=== PATIENT | female | born 1945 | race Caucasian/White ===

== ENCOUNTER 2018-04-08 01:45 | Outpatient (CLI) | payer MEDICARE, SELFPAY ==
[2018-04-08 11:24] LABS: BUN 8 mg/dL (7-18); CREATININE 0.65 mg/dL (0.55-1.02); Calcium 9.2 mg/dL (8.5-10.1); Chloride 99 mmol/L (98-107); Cholesterol 237 mg/dL (50-200); Glucose 110 mg/dL (70-100); HDL Cholesterol 148 mg/dL (40-60); LDL CHOLESTEROL 69 mg/dL (<100); Potassium 4.3 mmol/L (3.5-5.1); Sodium 136 mmol/L (136-145); Triglyceride 31 mg/dL (30-150)
== END 2018-04-08 02:05 ==
PROVIDERS: PCP Nurse Practitioner Family; Visit Provider Nurse Practitioner Family
DX: I10 Essential (primary) hypertension (principal); E78.5 Hyperlipidemia, unspecified
CPT/HCPCS: 36415; 80048; 80061; 83721

== ENCOUNTER 2019-01-11 01:44 | Outpatient (CLI) | payer MEDICARE, SELFPAY ==
[2019-01-11 12:35] LABS: Abs Immature Grans 0.01 k/cumm (0.0-0.09); Absolute Basophil Count 0.06 k/cumm (0.0-0.2); Absolute Eosinophil Count 0.09 k/cumm (0.0-0.7); Absolute Lymphocyte Count 2.01 k/cumm (1.2-3.4); Absolute Monocyte Count 0.83 k/cumm (0.11-0.7); Absolute Neutrophil Count 4.15 k/cumm (1.2-6.7); Basophils % 0.8; Eosinophils % 1.3; HCT 39.2 % (36.0-46.0); HGB 13.8 g/dL (12.0-15.5); Immature Grans % 0.1; Lymphocytes % 28.1; Mean Corp. HGB Concentration 35.2 g/dL (32.0-36.0); Mean Corpuscular Hemoglobin 34.9 pg (27.0-33.0); Mean Corpuscular Volume 99.2 fL (80-95); Mean Platelet Volume 10.6 fL (8.0-11.0); Monocytes % 11.6; Neutrophils % 58.1; Platelet Count 315 x1000/uL (130-400); RBC 3.95 m/cumm (4.00-5.20); RBC Distribution Width 12.8 % (11.7-14.6); White Blood Cell Count 7.15 k/cumm (4.4-10.8)
[2019-01-11 13:02] LABS: ALT 27 U/L (12-78); AST 28 U/L (15-37); Alkaline Phosphatase 84 U/L (46-116); Anion Gap 11.3 mmol/L (3-11); BUN 13 mg/dL (7-18); Bilirubin, Total 0.8 mg/dL (0.2-1.0); CO2 27.7 mmol/L (21.0-32.0); CREATININE 0.63 mg/dL (0.55-1.02); Chloride 96 mmol/L (98-107); Cholesterol 249 mg/dL (50-200); Glucose 95 mg/dL (70-100); HDL Cholesterol 147 mg/dL (40-60); Potassium 4.8 mmol/L (3.5-5.1); Sodium 135 mmol/L (136-145); Total Protein 6.9 g/dL (6.4-8.2)
[2019-01-11 13:03] LABS: Iron 82 ug/dL (50-175); Total Iron Binding Capacity 267 ug/dL (250-450); Transferrin Sat 31 % (15-50)
[2019-01-11 13:11] LABS: Triglyceride < 25 mg/dL (30-150)
[2019-01-11 13:42] LABS: LDL CHOLESTEROL 75 mg/dL (<100)
== END 2019-01-11 02:04 ==
PROVIDERS: PCP Nurse Practitioner Family; Visit Provider Internal Medicine
DX: D64.9 Anemia, unspecified (principal); E78.5 Hyperlipidemia, unspecified; F17.200 Nicotine dependence, unspecified, uncomplicated
CPT/HCPCS: 36415; 80053; 80061; 83721; 83540; 83550; 85025

== ENCOUNTER 2020-01-07 21:25 | Outpatient (REF) | payer MEDICARE, SELFPAY ==
[2020-01-07 21:38] LABS: Anion Gap 7.8 mmol/L (3-11); BUN 9 mg/dL (7-18); CO2 29.2 mmol/L (21.0-32.0); CREATININE 0.62 mg/dL (0.55-1.02); Calcium 9.5 mg/dL (8.5-10.1); Chloride 97 mmol/L (98-107); Glucose 144 mg/dL (74-106); Potassium 4.9 mmol/L (3.5-5.1); Sodium 134 mmol/L (136-145)
== END 2020-01-07 21:45 ==
LOC: LBN 21:25
PROVIDERS: PCP Nurse Practitioner Family; Visit Provider Nurse Practitioner Family
DX: I10 Essential (primary) hypertension (principal)
CPT/HCPCS: 80048

== ENCOUNTER 2021-09-17 02:51 | Outpatient (CLI) | payer MEDICARE, SELFPAY ==
[2021-09-17 12:35] LABS: Hemoglobin A1C 5.7 % (<5.7)
[2021-09-17 13:46] LABS: Anion Gap 9.4 mmol/L (3-11); BUN 10 mg/dL (7-18); CO2 27.6 mmol/L (21.0-32.0); CREATININE 0.6 mg/dL (0.55-1.02); Chloride 100 mmol/L (98-107); Glucose 99 mg/dL (74-106); Potassium 4.7 mmol/L (3.5-5.1); Sodium 137 mmol/L (136-145)
[2021-09-17 14:12] LABS: Cholesterol 227 mg/dL (<200)
[2021-09-17 14:15] LABS: Triglyceride < 25 mg/dL (<150)
[2021-09-17 14:16] LABS: HDL Cholesterol 164 mg/dL (40-60)
[2021-09-17 14:27] LABS: LDL CHOLESTEROL 49 mg/dL (<100)
== END 2021-09-17 02:52 | disposition home or self-care (01) ==
LOC: LBO 02:51
PROVIDERS: PCP Nurse Practitioner Family; Visit Provider Nurse Practitioner Family
DX: I10 Essential (primary) hypertension (principal); R73.01 Impaired fasting glucose
CPT/HCPCS: 36415; 80048; 80061; 83721; 83036

== ENCOUNTER 2023-01-27 11:37 | Outpatient (CLI) | payer MEDICARE, SELFPAY ==
[2023-01-27 13:10] LABS: Hemoglobin A1C 5.2 % (<5.7)
[2023-01-27 13:20] LABS: ALT 23 U/L (14-59); AST 26 U/L (15-37); Alkaline Phosphatase 74 U/L (46-116); Anion Gap 8.8 mmol/L (3-11); BUN 10 mg/dL (7-18); Bilirubin, Total 0.8 mg/dL (0.2-1.0); CO2 29.2 mmol/L (21.0-32.0); CREATININE 0.6 mg/dL (0.55-1.02); Calcium 10.1 mg/dL (8.5-10.1); Chloride 94 mmol/L (98-107); Cholesterol 242 mg/dL (<200); Estimated GFR 92.97 (mL/min/1.73m2); Glucose 107 mg/dL (74-106); HDL Cholesterol 156 mg/dL (40-60); Potassium 4.4 mmol/L (3.5-5.1); Sodium 132 mmol/L (136-145); TSH (W/Ref FT4) 2.31 uIU/mL (0.36-3.74); Total Protein 7.6 g/dL (6.4-8.2); Triglyceride <25 mg/dL (<150)
[2023-01-27 14:09] LABS: LDL CHOLESTEROL 65 mg/dL (<100)
[2023-01-28 10:07] LABS: Hepatitis C Ab w Rflx HCV PCR Negative (Negative)
== END 2023-01-27 11:38 | disposition home or self-care (01) ==
LOC: LOS 11:38
PROVIDERS: PCP Nurse Practitioner Family; Referring Provider Nurse Practitioner Family; Visit Provider Nurse Practitioner Family
DX: I10 Essential (primary) hypertension (principal); R73.03 Prediabetes; Z11.59 Encounter for screening for other viral diseases; E78.5 Hyperlipidemia, unspecified
CPT/HCPCS: 36415; 80053; 80061; 83721; 86803; 83036; 84443

== ENCOUNTER 2023-04-07 10:43 | Outpatient (CLI) | payer MEDICARE, SELFPAY ==
[2023-04-07 12:39] LABS: Anion Gap 10.7 mmol/L (3-11); BUN 14 mg/dL (7-18); CO2 28.3 mmol/L (21.0-32.0); CREATININE 0.8 mg/dL (0.55-1.02); Chloride 98 mmol/L (98-107); Estimated GFR 76.31 (mL/min/1.73m2); Glucose 104 mg/dL (74-106); Potassium 4.5 mmol/L (3.5-5.1); Sodium 137 mmol/L (136-145)
== END 2023-04-07 10:44 | disposition home or self-care (01) ==
PROVIDERS: PCP Nurse Practitioner Family; Referring Provider Nurse Practitioner Family; Visit Provider Nurse Practitioner Family
DX: E87.1 Hypo-osmolality and hyponatremia (principal)
CPT/HCPCS: 36415; 80048

== ENCOUNTER 2025-01-31 04:34 | Outpatient (CLI) | payer MEDICARE, SELFPAY ==
[2025-01-31 13:19] LABS: ALT 21 U/L (14-59); AST 25 U/L (15-37); Albumin 4.0 g/dL (3.4-5.0); Alkaline Phosphatase 62 U/L (46-116); Anion Gap 10.3 mmol/L (3-11); BUN 14 mg/dL (7-18); Bilirubin, Total 0.9 mg/dL (0.2-1.0); CO2 26.7 mmol/L (21.0-32.0); Calcium 10.0 mg/dL (8.5-10.1); Chloride 96 mmol/L (98-107); Estimated GFR 91.82 (mL/min/1.73m2); Glucose 100 mg/dL (74-106); Potassium 4.4 mmol/L (3.5-5.1); Sodium 133 mmol/L (136-145); Total Protein 7.4 g/dL (6.4-8.2)
== END 2025-01-31 04:35 | disposition home or self-care (01) ==
LOC: LOS 04:34
PROVIDERS: PCP Nurse Practitioner Family; Visit Provider Nurse Practitioner Family
DX: E83.52 Hypercalcemia (principal)
CPT/HCPCS: 36415; 80053